=== PATIENT | female | born 1980 | race Caucasian/White ===

== ENCOUNTER 2017-06-15 18:55 | Emergency (ER) | payer OTHER ==
[~2017-06-15] VITALS: Ht 152.4 cm; Wt 51.5 kg
[~2017-06-15 18:55] MED LIST: ALPR-138 PO; AMBI5TAB PO; DEPA500T3 PO; EPIP0.3I IM; LEVO50TA4 PO; ZOFR4TAB3 SL
[2017-06-15] MEDS ORDERED: GADODIAMIDE PF 287 MG/ML 10 ML VIAL (for RAD MRI) IVCONTRAST ONE (18:56)
[2017-06-15 19:09] VITALS: BP 119/50; PULSE 86; RESP 20; TEMP 98.3; O2SAT 98
--- NOTE | 2017-06-15 19:29 | PD ---
HPI Chief Complaint: Headache Time Seen by Provider: 19:20 Travel History International Travel<30 days: No Contact w/Intl Traveler<30days: No Traveled to known affect area: No History of Present Illness HPI 37-year-old female here for evaluation of headache, right ear ringing, and muffled hearing in her right ear. Symptoms have been going on for about 6 days. She reports history of migraine headaches, however no longer takes any medications specific for migraines. Her headache initially started with nausea in the middle of the night followed by headache that felt similar to migraine headaches in the past. The patient is concerned because she has never had a migraine last this long. She reports that the head pain is migratory, currently 2 out of 10. No visual disturbances. No paresthesias or motor deficits. No fevers or chills. She has taken Aleve and Advil without relief of symptoms. She has not taken any aspirin. Patient is also noticed diminished hearing in her right ear. PFSH Past Medical History Medical History: Denies Significant Hx Diminished Hearing: No Tetanus Vaccination: Unknown Influenza Vaccination: No ?: Unknown LMP: 06/12/17 : 2 Para: 2 Past Surgical History Surgical History: No Previous Surgery Section: Yes (x2) Social History Alcohol Use: No Tobacco Use: No Substance Use: No Allergies-Medications (Allergen,Severity, Reaction): Coded Allergies: bee venom protein (honey bee) (Unverified Allergy, Intermediate, exteme swelling, 06/05/17) hornet venom (Unverified Allergy, Intermediate, extreme swelling, 06/05/17) Reported Meds & Prescriptions Reported Meds & Active Scripts Active Reported [ control pills] 1 Tab PO DAILY Alprazolam 0.25 Mg Tab 0.25 Mg PO Q8H PRN Review of Systems Except as stated in HPI: all other systems reviewed are Neg Physical Exam Narrative GENERAL: Well-developed, well-nourished, comfortable, no apparent distress. SKIN: Focused skin assessment warm/dry. HEAD: Atraumatic. Normocephalic. EYES: Pupils equal, round, 3 mm, react to light. No scleral icterus. No injection or drainage. ENT: Mucous membranes pink and moist. Bilateral tympanic members and external auditory canals are normal. NECK: Trachea midline. No JVD. CARDIOVASCULAR: Regular rate and rhythm. RESPIRATORY: No accessory muscle use. Clear to auscultation. Breath sounds equal bilaterally. GASTROINTESTINAL: Abdomen soft, non-tender, nondistended. MUSCULOSKELETAL: No obvious deformities. No clubbing. No cyanosis. No edema. NEUROLOGICAL: Awake and alert. No obvious cranial nerve deficits. Motor grossly within normal limits. Normal speech. No focal deficits. PSYCHIATRIC: Appropriate mood and affect; insight and judgment normal. Data Data Last Documented VS Vital Signs Date Time Temp Pulse Resp B/P (MAP) Pulse Ox O2 Delivery O2 Flow Rate FiO2 06/15/17 22:16 83 20 103/72 (82) 99 06/15/17 19:56 Room Air 06/15/17 19:09 98.3 Orders Orders Basic Metabolic Panel (Bmp) (06/15/17 19:24) Complete Blood Count With Diff (06/15/17 19:24) Iv Access Insert/Monitor (06/15/17 19:24) Ecg Monitoring (06/15/17 19:24) Oximetry (06/15/17 19:24) Sodium Chloride 0.9% Flush (Ns Flush) (06/15/17 19:30) Metoclopramide Inj (Reglan Inj) (06/15/17 19:30) Ketorolac Inj (Toradol Inj) (06/15/17 19:30) Beta Hcg (Quant/Titer) (06/15/17 19:24) Sodium Chlor 0.9% 1000 Ml Inj (Ns 1000 M (06/15/17 19:30) Ct Brain W/O Iv Contrast(Rout) (06/15/17 ) Mri Brain W&W/O Contrast (06/15/17 ) Gadodiamide Pf Inj (Omniscan Pf Inj) (06/15/17 18:56) Labs Laboratory Tests Test 06/15/17 19:35 White Blood Count 5.4 TH/MM3 Red Blood Count 4.37 MIL/MM3 Hemoglobin 13.3 GM/DL Hematocrit 39.3 % Mean Corpuscular Volume 89.9 FL Mean Corpuscular Hemoglobin 30.5 PG Mean Corpuscular Hemoglobin Concent 34.0 % Red Cell Distribution Width 12.1 % Platelet Count 243 TH/MM3 Mean Platelet Volume 7.6 FL Neutrophils (%) (Auto) 58.3 % Lymphocytes (%) (Auto) 32.8 % Monocytes (%) (Auto) 6.8 % Eosinophils (%) (Auto) 1.4 % Basophils (%) (Auto) 0.7 % Neutrophils # (Auto) 3.1 TH/MM3 Lymphocytes # (Auto) 1.8 TH/MM3 Monocytes # (Auto) 0.4 TH/MM3 Eosinophils # (Auto) 0.1 TH/MM3 Basophils # (Auto) 0.0 TH/MM3 CBC Comment DIFF FINAL Differential Comment Blood Urea Nitrogen 13 MG/DL Creatinine 0.75 MG/DL Random Glucose 91 MG/DL Calcium Level 8.8 MG/DL Sodium Level 139 MEQ/L Potassium Level 3.9 MEQ/L Chloride Level 105 MEQ/L Carbon Dioxide Level 24.9 MEQ/L Anion Gap 9 MEQ/L Estimat Glomerular Filtration Rate 87 ML/MIN Human Chorionic Gonadotropin, Quant LESS THAN 1 MIU/ML MDM Medical Decision Making Medical Screen Exam Complete: Yes Emergency Medical Condition: Yes Differential Diagnosis Migraine headache, tension headache, cluster headache, acoustic neuroma, intracranial abnormality Narrative Course Initial vital signs show heart rate 86, blood pressure 119/50, pulse ox 98% on room air, oral temp of 98.3F. CBC is unremarkable. BMP is unremarkable. Beta hCG is negative. CT head: CONCLUSION: Tiny 5 mm focal hyperdensity in the expected region of the right putamen raising the possibility of tiny acute parenchymal hemorrhage versus basal ganglia calcification. MRI of the brain with and without contrast may be helpful for further characterization of this finding if clinically indicated Patient was given IV Toradol and IV Reglan with improvement in headache. She was made aware of CT findings. MRI will be ordered to further evaluate hypodensity seen on CT scan. MRI brain: CONCLUSION: 1. Tiny probable venous angioma within the expected region of the posterior limb of the right internal capsule. This likely accounts for the focal hyperdensity identified on CT scan. There is no definite acute parenchymal bleed noted in this location. 2. No acute infarct, mass effect, midline shift or extra-axial bleed. Case discussed with on-call neurosurgeon Dr. Burk. There is nothing to do acutely for this MRI finding. He recommends follow-up as an outpatient with neurology for her migraines. Patient made aware of all findings and was provided copies of both her CT and MRI reports. She will be given both ENT and neurology follow-up. She was informed on when to return to the emergency department. She verbalizes understanding and agreement with plan. Diagnosis Primary Impression: Headache Qualified Codes: R51 - Headache Additional Impressions: Decreased hearing of right ear Venous angioma of brain Referrals: Toy Vazquez MD 1 week ENT Bay Moura MD 1 week Neurologist Primary Care Physician 1 week Additional Instructions: Follow-up with a primary care physician this week. Follow-up with ENT Dr. Vazquez or an ENT of your choice this week. Return to the emergency department for worsening symptoms or any other concerns. Disposition: 01 DISCHARGE HOME Condition: Stable Rajesh Newton MD Jun 15, 2017 19:28
[2017-06-15] MEDS ORDERED: SODIUM CHLORIDE 0.9% FLUSH 10 ML FLUSH IV FLUSH PRN (19:30)
[2017-06-15] MEDS ORDERED: METOCLOPRAMIDE HCL 10 MG/2 ML VIAL IV PUSH ONE (19:30)
[2017-06-15] MEDS ORDERED: SODIUM CHLOR 0.9% 1000 ML INJ 1,000 ML IV ONE (19:30)
[2017-06-15] MEDS ORDERED: KETOROLAC TROMETHAMINE 30 MG/ML (IVP) VIAL IV PUSH ONE (19:30)
[2017-06-15 19:46] LABS: AUTOMATED NEUTROPHIL # 3.1 TH/MM3 (1.8-7.7); BASOPHIL % 0.7 % (0.0-2.0); EOSINOPHIL # 0.1 TH/MM3 (0-0.4); EOSINOPHIL % 1.4 % (0.0-4.0); HEMATOCRIT 39.3 % (35.0-46.0); HEMO FLAGS DIFF FINAL; LYMPH % 32.8 % (9.0-44.0); LYMPHOCYTE # 1.8 TH/MM3 (1.0-4.8); MEAN CELL VOLUME 89.9 FL (80.0-100.0); MEAN CORPUSCULAR HEMOGLOBIN 30.5 PG (27.0-34.0); MONO % 6.8 % (0.0-8.0); NEUT % 58.3 % (16.0-70.0); PLATELET COUNT 243 TH/MM3 (150-450); RED BLOOD COUNT 4.37 MIL/MM3 (4.00-5.30); RED CELL DISTRIBUTION WIDTH 12.1 % (11.6-17.2); WHITE BLOOD COUNT 5.4 TH/MM3 (4.0-11.0)
[2017-06-15 19:53] LABS: CHLORIDE 105 MEQ/L (98-107); POTASSIUM 3.9 MEQ/L (3.5-5.1); SODIUM (NA) 139 MEQ/L (136-145)
[2017-06-15] MEDS ORDERED: ALPR0.25 PO (19:55)
[2017-06-15] MEDS ORDERED: birth control pills PO (19:55)
[2017-06-15 19:56] VITALS: BP 103/72; PULSE 99; RESP 20; O2SAT 99
[2017-06-15 19:56] LABS: ANION GAP 9 MEQ/L (5-15); BICARBONATE 24.9 MEQ/L (21.0-32.0); BLOOD UREA NITROGEN 13 MG/DL (7-18)
[2017-06-15 20:00] VITALS: BP 104/71; PULSE 83; RESP 20; O2SAT 100
[2017-06-15 20:00] LABS: GLOMERULAR FILTRATION RATE 87 ML/MIN (>89)
[2017-06-15 20:04] LABS: BETA HCG QUANT LESS THAN 1 MIU/ML (0-5)
--- NOTE | 2017-06-15 20:45 | RADRPT ---
EXAM DATE/TIME: 06/15/2017 20:08 [facility] COMPARISON: No previous studies available for comparison. INDICATIONS : Headache and right ear pain for 4 days RADIATION DOSE: 53.82 CTDIvol (mGy) MEDICAL HISTORY : None SURGICAL HISTORY : None. ENCOUNTER: Initial ACUITY: 4 - 6 days PAIN SCALE: 3/10 LOCATION: Right cranial TECHNIQUE: Multiple contiguous axial images were obtained of the head. Using automated exposure control and adj ustment of the mA and/or kV according to patient size, radiation dose was kept as low as reasonably a chievable to obtain optimal diagnostic quality images. DICOM format image data is available electro nically for review and comparison. FINDINGS: There is a 5 mm focal hyperdensity in the expected region of the right putamen raising the possibility of tiny focal parenchymal hemorrhage or basal ganglia calcification. MRI of the brai n with and without contrast may be helpful for further evaluation of this finding if clinically indicated. Ther e is no midline shift or extra-axial fluid collections. The ventricles, sulci and cisterns are normal in size, shape and position for the patient's age. No acute infarction is noted. CONCLUSION: Tiny 5 mm focal hyperdensity in the expected region of the right putamen raising the possibility of tiny acute parenchymal hemorrhage versus basal ganglia calcification. MRI of the brain with and with out contrast may be helpful for further characterization of this finding if clinically indicated. Salinas Brownlee MD on June 15, 2017 at 20:38 Board Certified Radiologist. This report was verified electronically.
[2017-06-15 21:16] VITALS: BP 105/67; PULSE 79; RESP 20; O2SAT 99
[2017-06-15 22:16] VITALS: BP 103/72; PULSE 83; RESP 20; O2SAT 99
--- NOTE | 2017-06-15 22:26 | RADRPT ---
EXAM DATE/TIME: 06/15/2017 21:56 [facility] COMPARISON: No previous studies available for comparison. INDICATIONS : Cephalgia. Right ear pain. CONTRAST: 10 cc Omniscan (gadodiamide) IV MEDICAL HISTORY : Seizures. SURGICAL HISTORY : section. ENCOUNTER: Initial ACUITY: 1 day PAIN SCORE: 2/10 LOCATION: cranial TECHNIQUE: Multiplanar, multisequence MRI of the brain was performed both prior to and following the administrat ion of paramagnetic contrast. FINDINGS: CEREBRUM: The ventricles are normal for age. No evidence of midline shift, mass lesion, hemorrhage or acute in farction. No extraaxial fluid collections are seen. The pituitary gland and suprasellar cistern are normal in configuration. WHITE MATTER: No significant signal abnormalities are seen in the white matter. POSTERIOR FOSSA: The cerebellum and brainstem are intact. The 4th ventricle is midline. The cerebellopontine angle is unremarkable. The cerebellar tonsils are normal in position. DIFFUSION IMAGING: No focal areas of restricted diffusion are seen. No evidence of acute infarction. EXTRACRANIAL: The visualized portions of the orbits and paranasal sinuses are unremarkable. POST-CONTRAST: There is a tiny probable venous angioma within the expected region of the posterior limb of the right internal capsule. This likely accounts for the focal hyperdensity identified on CT scan. CONCLUSION: 1. Tiny probable venous angioma within the expected region of the posterior limb of the right interna l capsule. This likely accounts for the focal hyperdensity identified on CT scan. There is no definit e acute parenchymal bleed noted in this location. 2. No acute infarct, mass effect, midline shift or extra-axial bleed. Salinas Brownlee MD on June 15, 2017 at 22:18 Board Certified Radiologist. This report was verified electronically.
[2017-06-15 23:06] VITALS: BP 124/76
== END 2017-06-15 23:08 | disposition home or self-care (01) ==
LOC: PHED 18:55
DX: R51 Headache (principal); H91.91 Unspecified hearing loss, right ear; Q28.3 Other malformations of cerebral vessels
CPT/HCPCS: 70450; 70553; 80048; 84702; 85025; 96374; 96375; 99285; A9579; J1885; J2765; J7030

== ENCOUNTER 2017-12-13 20:44 | Emergency (ER) | payer OTHER ==
[~2017-12-13] VITALS: Ht 152.4 cm; Wt 51.0 kg
[~2017-12-13 20:44] MED LIST changes: -ALPR-138 PO; +ALPR0.25 PO; -AMBI5TAB PO; -DEPA500T3 PO; -EPIP0.3I IM; -LEVO50TA4 PO; -ZOFR4TAB3 SL; +birth control pills PO
[2017-12-13 21:17] VITALS: BP 156/74; PULSE 100; RESP 20; TEMP 99.2; O2SAT 20; O2SAT 97
[2017-12-13] MEDS ORDERED: BUSP10TA PO (21:35)
[2017-12-13] MEDS ORDERED: PRED20 PO (22:59)
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
[2017-12-13] MEDS ORDERED: predniSONE 20 MG TAB PO ONE (23:00)
[2017-12-13] MEDS ORDERED: oxyCODONE/ACETAMINOPHEN 7.5 MG/325 MG TAB PO ONE (23:15)
== END 2017-12-13 23:11 | disposition home or self-care (01) ==
LOC: PHEFT 20:44
DX: J02.8 Acute pharyngitis due to other specified organisms (principal); B97.89 Other viral agents as the cause of diseases classified elsewhere; F32.9 Major depressive disorder, single episode, unspecified
CPT/HCPCS: 87081; 87880; 99283; J7512